=== PATIENT | female | born 1990 | race Two or more races ===

== ENCOUNTER 2021-11-01 15:57 | Emergency (ER) | payer BC, OTHER ==
[2021-11-01 16:08] VITALS: BP 127/81; PULSE 87; TEMP 98.9; BMI 48.4
[2021-11-01] MEDS ORDERED: LIDOCAINE 5% TOPICAL PATCH TP ONE (17:03)
[2021-11-01] MEDS ORDERED: KETOROLAC TROMETHAMINE 30 MG/1 ML VIAL IM ONE (17:04)
[2021-11-01] MEDS ORDERED: LIDOCAINE 5% TOPICAL PATCH ONE (17:10)
[2021-11-01] MEDS ORDERED: KETOROLAC TROMETHAMINE 30 MG/1 ML VIAL ONE (17:11)
== END 2021-11-01 19:59 | disposition home or self-care (01) ==
LOC: JERFT 15:57 → JER 15:57 → JERFT 19:59
PROC: 3E0233Z Introduction of Anti-inflammatory into Muscle, Percutaneous Approach (ICD-10-PCS; principal; 2021-11-01)
DX: M54.2 Cervicalgia (principal); M54.50 Low back pain, unspecified; G56.92 Unspecified mononeuropathy of left upper limb
CPT/HCPCS: 99284-25